=== PATIENT | male | born 1950 | race Caucasian/White ===

== ENCOUNTER 2018-09-18 13:43 | Inpatient (IN) | payer OTHER, MEDICAID ==
[~2018-09-18] VITALS: Ht 157.5 cm; Wt 76.7 kg
[2018-09-18 13:50] VITALS: BP 131/66
[2018-09-18] MEDS ORDERED: MORPHINE SULFATE 4 MG/ML SYR IVP ONE (14:45)
[2018-09-18] MEDS ORDERED: NITROGLYCERIN 2% 1 GM PKT TP ONE (14:45)
[2018-09-18] MEDS ORDERED: ASPIRIN 325 MG TAB PO ONE (14:45)
--- NOTE | 2018-09-18 14:52 | NUR ---
PT AMBULATES TO BED 9
--- NOTE | 2018-09-18 14:55 | NUR ---
PATIENT PRESENTS TO ED WITH C/O CHEST PAIN, SOB . AAOX4 WITH EVEN AND STEADY GAIT; LUNGS CLEAR BL;COUGH NOTED, HR EVEN AND REGULAR; PT STATED PRESSURE LIKE CHEST PAIN 10/10, RADIATING TO [place] SHOULDERS AND BACK. SKIN IS WARM AND DRY TO TOUCH, VSS; PATIENT POSITIONED FOR COMFORT; HOB ELEVATED; BEDRAILS UP X2; BED DOWN. ER MD MADE AWARE OF PT STATUS.
--- NOTE | 2018-09-18 14:58 | NUR ---
Patient being evaluated by physician at bedside.
[2018-09-18] MEDS ORDERED: ENOXAPARIN 80 MG/0.8 ML SYR SUBQ ONE (15:00)
[2018-09-18 15:22] LABS: BASOPHILS % (AUTO) 0.5 % (0.0-2.0); EOSINOPHILS # (AUTO) 0.1 K/uL (0-0.4); EOSINOPHILS % (AUTO) 0.9 % (0.0-4.0); HEMATOCRIT 42.2 % (36-52); LYMPHOCYTES # (AUTO) 1.5 K/uL (2.0-11.5); LYMPHOCYTES % (AUTO) 25.4 % (20.5-51.1); MEAN CORPUSCULAR HEMOGLOBIN 31 pg (27-31); MEAN CORPUSCULAR HGB CONC 33 g/dL (33-37); MEAN CORPUSCULAR VOLUME 94.1 fL (80-94); MONOCYTES # (AUTO) 0.4 K/uL (0.8-1.0); MONOCYTES % (AUTO) 6.9 % (1.7-9.3); NEUTROPHILS % (AUTO) 66.3 % (42.2-75.2); PLATELET COUNT (AUTO) 153 K/uL (140-450); RED BLOOD CELL COUNT(AUTO) 4.49 MIL/uL (4.20-6.10); RED CELL DISTRIBUTION WIDTH 14.3 % (11.6-13.7); WHITE BLOOD COUNT (AUTO) 6.1 K/uL (4.8-10.8)
[2018-09-18 15:53] LABS: ALBUMIN 3.6 g/dL (3.4-5.0); CARBON DIOXIDE 28.4 mmol/L (21-32); POTASSIUM 4.4 mmol/L (3.5-5.1); TOTAL BILIRUBIN 0.7 mg/dL (0.0-1.0)
[2018-09-18 16:10] LABS: CREATINE KINASE MB 4.1 ng/mL (0-3.6)
--- NOTE | 2018-09-18 16:10 | NUR ---
CRITICAL LAB WITH TROPONIN 0.51, DR. GARRETT MADE AWARE.
[2018-09-18 16:11] LABS: CHOL/HDL RATIO 2.1 (1-4.5)
--- NOTE | 2018-09-18 17:33 | NUR ---
CONSENT SIGNED BY PT FOR CT CHEST W/WO CONTRAST
--- NOTE | 2018-09-18 17:52 | NUR ---
OFF UNIT FOR CT
--- NOTE | 2018-09-18 18:06 | NUR ---
PT IS BACK TO ROOM. NO S/S OF DISTRESS, VSS, STILL C/O CHEST DISCOMFORT.
[2018-09-18] MEDS ORDERED: MORPHINE SULFATE 4 MG/ML SYR IVP PRN (18:45)
[2018-09-18] MEDS ORDERED: ACETAMINOPHEN 325 MG TAB PO PRN (18:45)
[2018-09-18] MEDS ORDERED: ONDANSETRON 4 MG/2 ML VIAL IVP PRN (18:45)
[2018-09-18 19:25] VITALS: BP 114/62
--- NOTE | 2018-09-18 19:25 | NUR ---
Patient will be admitted to care of DR. MONROE. Admited to TELEMETRY. Will go to room 120A. Belongings list completed. Report to MYRIAM SIMON AT BEDSIDE.
--- NOTE | 2018-09-18 19:25 | NUR ---
RECEIVED REPORT FROM ELECTRIC POWER LINE EXAMINER BRIDGET. PT IS A&OX4. NO SOB OR DISTRESS NOTED. RESPIRATIONS ARE EQUAL AND UNLABORED. ON RA. PT IV ON LEFT FA 20G SALINE LOCK. SKIN IS INTACT. PITTING EDEMA BLE +1. EDEMA ON ABDOMEN NON PITTING. LUNG SOUNDS ARE CLEAR. NITRO PATCH ON LEFT CHEST. PT DENIES ANY PAIN. VS ARE WITHIN NORMAL LIMITS. PT ADMITTED TO TELE UNDER DR DEGROOT. PLAN OF CARE DISCUSSED. CALL LIGHT WITHIN REACH. SAFETY MEASURES ARE IN PLACED.
[2018-09-18] MEDS ORDERED: LOVENOX 1MG/KG Q12H SUBQ SCH (21:00)
[2018-09-18] MEDS: INSULIN LISPRO SLIDING SCALE 100 UNITS/ML VIAL SUBQ PRN (21:47)
--- NOTE | 2018-09-18 21:47 | NUR ---
VITAL SIGNS ARE WITHIN NORMAL LIMITS. PT DENIES ANY PAIN. NO SOB. BLOOD SUGAR 286 COVERAGE ADMINISTERED. ALL NEEDS MET AT THIS TIME. CALL LIGHT WITHIN REACH.
[2018-09-18] MEDS: BLOOD GLUCOSE MONITORING 1 DEV DEV FS SCH (21:49)
[2018-09-19] VITALS: BP 126/68
--- NOTE | 2018-09-19 | NUR ---
VITAL SIGNS ARE WITHIN NORMAL LIMITS. NO DISTRESS NOTED. PT DENIES PAIN OR SOB. CALL LIGHT WITHIN REACH.
[2018-09-19 00:07] LABS: CREATINE KINASE MB 2.5 ng/mL (0-3.6)
--- NOTE | 2018-09-19 00:40 | NUR ---
SPOKE WITH DR HENSON REGARDING TROPONIN LEVEL 0.746 NO NEW ORDERS AT THIS TIME. PT VS WITHIN NORMAL LIMITS DENIES CHEST PAIN OR SOB.
--- NOTE | 2018-09-19 02:38 | NUR ---
PT SLEEPING. RESPIRATIONS ARE EQUAL AND UNLABORED. NO DISTRESS NOTED CALL LIGHT WITHIN REACH.
[2018-09-19 04:00] VITALS: BP 128/73
--- NOTE | 2018-09-19 04:16 | NUR ---
PT SLEEPING COMFORTABLY IN BED. NO DISTRESS NOTED. CALL LIGHT WITHIN REACH.
[2018-09-19] MEDS ORDERED: ENOXAPARIN 80 MG/0.8 ML SYR SUBQ SCH (05:00)
[2018-09-19] MEDS: BLOOD GLUCOSE MONITORING 1 DEV DEV FS SCH ×2 (05:01→12:29)
--- NOTE | 2018-09-19 05:43 | NUR ---
PT RESTING COMFORTABLY IN BED. DENIES PAIN OR SOB. ALL NEEDS MET AT THIS TIME. CALL LIGHT WITHIN REACH.
[2018-09-19 07:15] LABS: BASOPHILS % (AUTO) 0.5 % (0.0-2.0); EOSINOPHILS # (AUTO) 0.1 K/uL (0-0.4); EOSINOPHILS % (AUTO) 2.3 % (0.0-4.0); HEMATOCRIT 40.3 % (36-52); HEMOGLOBIN 13.5 g/dL (12.0-18.0); LYMPHOCYTES # (AUTO) 1.5 K/uL (2.0-11.5); LYMPHOCYTES % (AUTO) 32.4 % (20.5-51.1); MEAN CORPUSCULAR HEMOGLOBIN 32 pg (27-31); MEAN CORPUSCULAR HGB CONC 34 g/dL (33-37); MEAN CORPUSCULAR VOLUME 94.7 fL (80-94); MONOCYTES # (AUTO) 0.3 K/uL (0.8-1.0); MONOCYTES % (AUTO) 7.2 % (1.7-9.3); NEUTROPHILS # (AUTO) 2.6 K/uL (1.8-7.7); NEUTROPHILS % (AUTO) 57.6 % (42.2-75.2); PLATELET COUNT (AUTO) 143 K/uL (140-450); RED BLOOD CELL COUNT(AUTO) 4.26 MIL/uL (4.20-6.10); RED CELL DISTRIBUTION WIDTH 14.2 % (11.6-13.7); WHITE BLOOD COUNT (AUTO) 4.6 K/uL (4.8-10.8)
--- NOTE | 2018-09-19 07:21 | NUR ---
ENDORSED PT TO DAY SHIFT RN. PT STABLE CONDITION
--- NOTE | 2018-09-19 07:25 | NUR ---
RECEIVED REPORT FROM NIGHT RN. PT RESTING IN BED. AAOX4. NO S/S OF ACUTE DISTRESS. PT DENIES PAIN. IV SITE PATENT AND INTACT. CALL LIGHT WITHIN REACH. SAFETY MEASURES ENSURED. WILL CONTINUE TO MONITOR.
[2018-09-19 08:06] VITALS: BP 117/61
--- NOTE | 2018-09-19 08:41 | NUR ---
PATIENT HAS BEEN SCREENED AND CATEGORIZED HIGH NUTRITION RISK. PATIENT WILL BE SEEN WITHIN 1-2 DAYS OF ADMISSION. 09/19/18-09/20/[address]
[2018-09-19 08:54] LABS: ALBUMIN 3.4 g/dL (3.4-5.0); ANION GAP 15.5 (8-16); CARBON DIOXIDE 26.9 mmol/L (21-32); POTASSIUM 4.4 mmol/L (3.5-5.1); TOTAL BILIRUBIN 0.7 mg/dL (0.0-1.0)
[2018-09-19] MEDS ORDERED: ASPIRIN 81 MG TAB.CHEW PO SCH (09:00)
[2018-09-19 09:32] LABS: CREATINE KINASE MB 2.1 ng/mL (0-3.6)
--- NOTE | 2018-09-19 09:33 | NUR ---
AM MEDS GIVEN WITH EDUCATION. PT VERBALIZED UNDERSTANDING. WILL CONTINUE TO MONITOR.
[2018-09-19 12:00] VITALS: BP 110/70
--- NOTE | 2018-09-19 12:27 | NUR ---
PT RESTING IN BED. AAOX4. NO S/S OF ACUTE DISTRESS. PT DENIES PAIN. WILL CONTINUE TO MONITOR.
[2018-09-19] MEDS: INSULIN LISPRO SLIDING SCALE 100 UNITS/ML VIAL SUBQ PRN (12:41)
[2018-09-19] MEDS ORDERED: ASPI81CT89 PO (12:59)
[2018-09-19] MEDS ORDERED: ACET-2619 PO (12:59)
--- NOTE | 2018-09-19 14:25 | NUR ---
09/19/18 RD INITIAL ASSESSMENT COMPLETED PLEASE REFER TO NUTRITION ASSESSMENT UNDER CARE ACTIVITY FOR ESTIMATED NUTRITIONAL NEEDS. 1. RECOMMEND CARDIAC AND CCHO 60 GM DIET TOLERATED 2. RD PROVIDED HEART HEALTHY NUTRITION EDUCATION 3. RD TO FOLLOW-UP 5-7 DAYS, LOW RISK LOWELL JOSEPH, RD
--- NOTE | 2018-09-19 14:48 | NUR ---
PATIENT CLEARED FOR DISCHARGE. DISCHARGE INSTRUCTIONS PROVIDED. PT VERBALIZED UNDERSTANDING. IV TAKEN OUT TIP INTACT. NO S/S OF ACUTE DISTRESS. PT DENIES PAIN. YELLOW CAB CALLED FOR PATIENT . PT REFUSED WHEELCHAIR. AMBULATED TO FRONT LOBBY.
== END 2018-09-19 14:52 | disposition home or self-care (01) | DRG 313 ==
LOC: MED 13:43 → MTU 18:46
PROVIDERS: ADMIT Hospitalist; ATTEND Hospitalist
DX: R07.89 Other chest pain (principal); N39.0 Urinary tract infection, site not specified; E11.9 Type 2 diabetes mellitus without complications; I10 Essential (primary) hypertension; E78.5 Hyperlipidemia, unspecified; E78.00 Pure hypercholesterolemia, unspecified; K21.9 Gastro-esophageal reflux disease without esophagitis; N40.0 Benign prostatic hyperplasia without lower urinary tract symptoms; M19.90 Unspecified osteoarthritis, unspecified site; Z90.49 Acquired absence of other specified parts of digestive tract; Z87.891 Personal history of nicotine dependence
CPT/HCPCS: 36415; 71045; 71275; 80053; 82550; 82553; 82948; 83880; 84484; 85025; 85379; 87081; 93005; 96372; 96374; 99291; J1650; J1815; J2270; Q0092; Q9967

== ENCOUNTER 2019-05-05 18:19 | Emergency (ER) | payer OTHER, MEDICAID ==
[~2019-05-05] VITALS: Ht 162.6 cm; Wt 78.9 kg
[~2019-05-05 18:19] MED LIST: ACET-2619 PO; ASPI-1718 PO
[2019-05-05 18:25] VITALS: BP 133/63
--- NOTE | 2019-05-05 18:25 | NUR ---
Patient ambulated to bed 3. RN evaluating patient at bedside.
[2019-05-05] MEDS ORDERED: PAX10 PO (18:36)
[2019-05-05] MEDS ORDERED: LOVA20TA8 PO (18:39)
[2019-05-05] MEDS ORDERED: FINA5TAB1 PO (18:39)
[2019-05-05] MEDS ORDERED: LISI10TA11 PO (18:39)
[2019-05-05] MEDS ORDERED: NITR0.4T2 SL (18:39)
[2019-05-05] MEDS ORDERED: MONT10TA35 PO (18:39)
--- NOTE | 2019-05-05 18:49 | NUR ---
Patient taken to CT scan via gurney by [facility]ocket.
--- NOTE | 2019-05-05 19:15 | NUR ---
68M C/O THROAT SWELLLING SINCE 10AM W/ EYE PAIN. THROAT/NECK IS SWOLLEN AND TENDER TO PALPATION. PT STATES HE HAS HARD TIME TO SWALLOW AND SOB. PT SPEAKING FULL CLEAR SENTENCES, NO RR DISTRESS, 97% ON RA. PMH DM , ANGINA, HTN
[2019-05-05 19:54] LABS: BASOPHILS % (AUTO) 0.3 % (0.0-2.0); EOSINOPHILS % (AUTO) 0.5 % (0.0-4.0); HEMATOCRIT 39.9 % (36-52); HEMOGLOBIN 13.6 g/dL (12.0-18.0); LYMPHOCYTES # (AUTO) 0.9 K/uL (2.0-11.5); LYMPHOCYTES % (AUTO) 14.2 % (20.5-51.1); MEAN CORPUSCULAR HEMOGLOBIN 32 pg (27-31); MEAN CORPUSCULAR HGB CONC 34 g/dL (33-37); MEAN CORPUSCULAR VOLUME 93.8 fL (80-94); MONOCYTES # (AUTO) 0.5 K/uL (0.8-1.0); MONOCYTES % (AUTO) 7.2 % (1.7-9.3); NEUTROPHILS # (AUTO) 4.9 K/uL (1.8-7.7); NEUTROPHILS % (AUTO) 77.8 % (42.2-75.2); PLATELET COUNT (AUTO) 133 K/uL (140-450); RED BLOOD CELL COUNT(AUTO) 4.26 MIL/uL (4.20-6.10); RED CELL DISTRIBUTION WIDTH 13.6 % (11.6-13.7); WHITE BLOOD COUNT (AUTO) 6.3 K/uL (4.8-10.8)
[2019-05-05 20:34] LABS: CREATININE 1.1 mg/dL (0.7-1.3)
[2019-05-05 20:38] LABS: ALBUMIN 3.9 g/dL (3.4-5.0); TOTAL BILIRUBIN 0.8 mg/dL (0.0-1.0)
[2019-05-05] MEDS ORDERED: MORPHINE SULFATE 4 MG/ML SYR IVP ONE (20:50)
[2019-05-05] MEDS ORDERED: KETOROLAC 15 MG/ML VIAL IVP ONE (20:50)
[2019-05-05 21:37] VITALS: BP 131/55
--- NOTE | 2019-05-05 21:37 | NUR ---
Patient discharged with v/s stable. Written and verbal after care instructions given and explained. Patient alert, oriented and verbalized understanding of instructions. Ambulatory with steady gait. All questions addressed prior to discharge. ID band removed. Patient advised to follow up with PMD. Rx of AUGMENTIN AND NORCO given. Patient educated on indication of medication including possible reaction and side effects. Opportunity to ask questions provided and answered.
== END 2019-05-05 21:37 | disposition home or self-care (01) ==
LOC: MED 18:19
DX: M54.2 Cervicalgia (principal); K11.5 Sialolithiasis; E11.9 Type 2 diabetes mellitus without complications; J02.9 Acute pharyngitis, unspecified; I10 Essential (primary) hypertension; Z79.82 Long term (current) use of aspirin; Z79.899 Other long term (current) drug therapy
CPT/HCPCS: 36415; 70490; 80053; 82150; 82948; 83605; 85025; 96374; 96375; 99284; J1885; J2270

== ENCOUNTER 2019-05-08 09:48 | Emergency (ER) | payer OTHER, MEDICAID ==
[~2019-05-08] VITALS: Ht 167.6 cm; Wt 73.0 kg
[~2019-05-08 09:48] MED LIST changes: +FINA5TAB1 PO; +LISI10TA11 PO; +LOVA20TA8 PO; +MONT10TA35 PO; +NITR0.4T2 SL; +PAX10 PO
[2019-05-08 09:53] VITALS: BP 99/61
--- NOTE | 2019-05-08 09:59 | NUR ---
PT AMB TO BED 12 WITH STEADY GAIT
--- NOTE | 2019-05-08 10:10 | NUR ---
PT BIB SELF FOR RT SIDE NECK SWELLING, PT WAS SEEN IN ER ON SUNDAY FOR SAME S/S. PT STATES HE WAS PRESCRIBED ABX BUT IS STILL HAVING PAIN. PT AWAKE AND ALERT, NO C/O SOB, NO RR DISTRESS. NO SWELLING NOTED TO TONGUE OR THROAT.
--- NOTE | 2019-05-08 10:41 | NUR ---
Note undone in EDM - 05/08/19 at 1101 by LEE PT BIB FOR GEN WEAKNESS, AND DIZZINESSS. PT HAS HX LIVER CIRRHOSIS , HTN, ANEMINA. PT STATES HE MAY HAVE BEEN HAVING DARK BLOODY STOOLS LATELY. PT ABD IS LARGE, ROUND, FIRM, NON TENDER, NO ABD PAIN. PT HAS PAIN TO LOWER RIGHT LEG, LUMP NOTED W/ REDNESS AND TENDERNESS. PT HAS BL LEG EDEMA NON PITTING. SKIN IS JAUNDICED. PT IS AWAKE AND ACTING APPROPRIATE. AT BEDSIDE.
[2019-05-08] MEDS ORDERED: MORPHINE SULFATE 4 MG/ML SYR IM ONE (10:45)
--- NOTE | 2019-05-08 11:30 | NUR ---
PT STATES HE HAS PAIN RELIEF BUT STILL PAIN WHEN HE MOVES OR TOUCHES NECK.
[2019-05-08 11:53] VITALS: BP 107/60
--- NOTE | 2019-05-08 11:53 | NUR ---
Patient discharged with v/s stable. Written and verbal after care instructions given and explained. Patient alert, oriented and verbalized understanding of instructions. Ambulatory with steady gait. All questions addressed prior to discharge. ID band removed. Patient advised to follow up with PMD. Rx of NORCO 5 MG given. Patient educated on indication of medication including possible reaction and side effects. Opportunity to ask questions provided and answered.
== END 2019-05-08 11:53 | disposition home or self-care (01) ==
LOC: MED 09:48
DX: K11.5 Sialolithiasis (principal); E11.9 Type 2 diabetes mellitus without complications; I10 Essential (primary) hypertension; Z79.82 Long term (current) use of aspirin; Z79.899 Other long term (current) drug therapy
CPT/HCPCS: 96372; 99283; J2270